=== PATIENT | female | born 2000 | race Caucasian/White ===

== ENCOUNTER 2022-06-30 15:46 | Inpatient (IN) | payer OTHER ==
[~2022-06-30] VITALS: Ht 162.6 cm; Wt 82.9 kg
[2022-06-30] VITALS (7 sets, daily range): BP systolic 132–149; BP diastolic 81–98
[2022-06-30] MEDS ORDERED: LOVE1INJ SC (16:27)
[2022-06-30] MEDS ORDERED: PRENTAB9 PO (16:27)
[2022-06-30] MEDS ORDERED: ECOT81TA5 PO (16:30)
[2022-06-30] MEDS ORDERED: HOME MED LIST COMPLETE! XX SCH (16:35)
[2022-06-30 17:44] LABS: HEMATOCRIT 36.6 % (36.0-47.0); HEMOGLOBIN 12.3 g/dl (12.0-15.5); MEAN CORPUSCULAR HEMOGLOBIN 30.2 pg (27.0-33.0); MEAN CORPUSCULAR HGB CONC 33.6 g/dl (32.0-36.5); MEAN CORPUSCULAR VOLUME 89.9 fl (80.0-96.0); PLATELET COUNT, AUTOMATED 172 10^3/uL (150-450); RED BLOOD COUNT 4.07 10^6/uL (4.00-5.40); WHITE BLOOD COUNT 10.5 10^3/uL (4.0-10.0)
[2022-06-30] MEDS ORDERED: OXYTOCIN DRIP 30 UNITS in IV 1 EA IV PRN ×4 (18:00)
[2022-06-30] MEDS ORDERED: LIDOCAINE 1% MDV 20ML VIAL INFIL PRN (18:00)
[2022-06-30] MEDS ORDERED: CARBOPROST TROMETHAMINE 250 MCG/ML AMP IM PRN (18:00)
[2022-06-30] MEDS ORDERED: METHYLERGONOVINE MALEATE 0.2 MG/ML VIAL (J2210) IM PRN (18:00)
[2022-06-30] MEDS ORDERED: miSOPROStol 25MCG 1/4 TABLET PV ONE (18:00)
[2022-06-30] MEDS ORDERED: OXYTOCIN INJ 10 UNITS/ML VIAL (J2590) IM PRN (18:00)
[2022-06-30] MEDS ORDERED: TRANEXAMIC ACID INJection 1,000 MG in NS 100 ML IV PRN (18:00)
[2022-06-30] MEDS ORDERED: miSOPROStol 50MCG 1/2 TABLET PO SCH (22:00)
[2022-07-01] VITALS (30 sets, daily range): BP systolic 116–144; BP diastolic 64–95
[2022-07-01] MEDS ORDERED: OXYTOCIN DRIP 30 UNITS in IV 1 EA IV SCH (08:05)
[2022-07-01] MEDS: LR 1,000 ML IV SCH (09:49)
[2022-07-01] MEDS: miSOPROStol 50MCG 1/2 TABLET PO SCH ×2 (16:24→20:33)
[2022-07-02] VITALS (47 sets, daily range): BP systolic 110–160; BP diastolic 55–98
[2022-07-02 00:30] LABS: HEMATOCRIT 35.5 % (36.0-47.0); MEAN CORPUSCULAR HEMOGLOBIN 30.7 pg (27.0-33.0); MEAN CORPUSCULAR HGB CONC 33.8 g/dl (32.0-36.5); MEAN CORPUSCULAR VOLUME 90.8 fl (80.0-96.0); PLATELET COUNT, AUTOMATED 153 10^3/uL (150-450); RED BLOOD COUNT 3.91 10^6/uL (4.00-5.40)
[2022-07-02] MEDS ORDERED: diphenhydrAMINE 50MG/ML VIAL (J1200) IV PRN (00:35)
[2022-07-02] MEDS ORDERED: ePHEDrine SULFATE 25 MG/5 ML(5MG/ML) SYRINGE IVP PRN (00:35)
[2022-07-02] MEDS ORDERED: LR 500 ML IV PRN (00:35)
[2022-07-02] MEDS ORDERED: NALOXONE INJ 0.4MG/1ML VIAL (J2310 PER 1MG) IV PRN (00:35)
[2022-07-02] MEDS ORDERED: EPIDURAL/PCA KEYS XX PRN (00:35)
[2022-07-02] MEDS ORDERED: ONDANSETRON 4MG 2ML VIAL IV PRN (00:35)
[2022-07-02] MEDS: FENTANYL/ROPIVACAINE/NACL BAG 100 ML EPIDURAL SCH ×2 (01:06→09:05)
[2022-07-02] MEDS ORDERED: OXYTOCIN DRIP 30 UNITS in IV 1 EA IV SCH (02:25)
[2022-07-02] MEDS ORDERED: LR 1,000 ML IV SCH (02:25)
[2022-07-02] MEDS: LR 1,000 ML IV SCH ×2 (08:41→10:54)
[2022-07-02] MEDS ORDERED: RHOGAM 300 MCG (1500 IU) INJ (J2790) IM SCH (14:00)
[2022-07-02] MEDS ORDERED: MOM 30ML SUSPENSION UDC PO PRN (14:00)
[2022-07-02] MEDS ORDERED: ACETAMINOPHEN 500 MG TAB PO PRN (14:00)
[2022-07-02] MEDS ORDERED: IBUPROFEN 800 MG TAB PO PRN (14:00)
[2022-07-02] MEDS ORDERED: DIBUCAINE 1% OINTMENT 30GM TOP PRN (14:00)
[2022-07-02] MEDS ORDERED: DOCUSATE SODIUM 100MG CAPSULE PO PRN (14:00)
[2022-07-02 14:16] LABS: CORD GAS ABE V -8.2; CORD GAS HCO3 V 17.7 MEQ/L; CORD GAS O2 SAT V 74.1 %; CORD GAS PCO2 V 37.8 mmHg; CORD GAS PH V 7.288 UNITS; CORD GAS PO2 V 32.7 mmHg; CORD GAS SBC V 17.5 MEQ/L; CORD GAS TCO2 V 18.8 MEQ/L
[2022-07-02] MEDS: ENOXAPARIN 40MG/0.4ML SYRINGE (J1650 PER 10MG) SC SCH (19:34)
[2022-07-03 06:00] VITALS: BP 118/69
[2022-07-03] MEDS: PRENATAL VITAMINS CHEWABLE TABLET PO SCH (08:45)
[2022-07-03] MEDS ORDERED: ENOXAPARIN 40MG/0.4ML SYRINGE (J1650 PER 10MG) SC SCH (09:00)
[2022-07-03 18:00] VITALS: BP 123/73
[2022-07-03] MEDS: ENOXAPARIN 40MG/0.4ML SYRINGE (J1650 PER 10MG) SC SCH (20:29)
[2022-07-04 05:46] VITALS: BP 110/65
[2022-07-04] MEDS: PRENATAL VITAMINS CHEWABLE TABLET PO SCH (07:56)
[2022-07-04] MEDS ORDERED: LOVE1INJ SC (08:21)
[2022-07-04] MEDS ORDERED: PRENCHW PO (08:21)
[2022-07-04] MEDS ORDERED: IBUP80TA PO (08:21)
[2022-07-04] MEDS ORDERED: COLA100C5 PO (08:21)
== END 2022-07-04 09:15 | disposition home or self-care (01) | DRG 807 ==
LOC: M LDI 16:02 → M OBS 07-02 16:18
PROVIDERS: ADMIT Obstetrics & Gynecology; ATTEND Obstetrics & Gynecology
PROC: 3E033VJ Introduction of Other Hormone into Peripheral Vein, Percutaneous Approach (ICD-10-PCS; 2022-06-30)
PROC: 3E0DXGC Introduction of Other Therapeutic Substance into Mouth and Pharynx, External Approach (ICD-10-PCS; 2022-06-30)
PROC: 10E0XZZ Delivery of Products of Conception, External Approach (ICD-10-PCS; principal; 2022-07-02)
PROC: 0KQM0ZZ Repair Perineum Muscle, Open Approach (ICD-10-PCS; 2022-07-02)
DX: O69.82X0 Labor and delivery complicated by other cord entanglement, without compression, not applicable or unspecified (principal); Z37.0 Single live birth; Z3A.39 39 weeks gestation of pregnancy; Z86.711 Personal history of pulmonary embolism; O70.1 Second degree perineal laceration during delivery; O77.0 Labor and delivery complicated by meconium in amniotic fluid

== ENCOUNTER → 2024-08-13 | Outpatient (REF) | payer OTHER ==
[~2024-08-13] MED LIST: COLA100C5 PO; ECOT81TA5 PO; IBUP80TA PO; LOVE1INJ SC; PRENCHW PO; PRENTAB9 PO
[2024-08-13 18:14] LABS: Trichomonas vaginalis (AMP) NOT DETECTED (NEGATIVE)
[2024-08-13 18:38] LABS: GC DNA AMPLIFICATION NEGATIVE (NEGATIVE)
== END ==
LOC: M LAB REF 16:21
PROVIDERS: ATTEND Student in an Organized Health Care Education/Training Program
DX: R30.0 Dysuria (principal)